=== PATIENT | female | born 1960 | race Two or more races ===

== ENCOUNTER 2025-01-26 15:40 | Emergency (ER) | payer MEDICAID, SELFPAY ==
[2025-01-26 15:53] VITALS: BP 149/95; PULSE 89; RESP 18; TEMP 37.1; O2SAT 95; BMI 27.0
--- NOTE | 2025-01-26 16:01 | XR_ITS ---
Examination: CT brain head without contrast. 2-D sagittal coronal reconstructions Date and time of exam:January 26, 2025 1612 hrs. Indications: Headaches dizziness left eye pressure today CTDI: vol (mGy):49.2 DLP: (mGycm):9 Technique: Multiple CT axial sections of the brain have been obtained, 5 mm slice thickness. Contrast has not been administered. 2-D sagittal, coronal reconstructions have been obtained Low dose protocols were performed. One or more of the following dose reduction techniques were used; automated exposure control, adjustment of the mA and/or KV according to patient size, use of iterative reconstruction technique. Findings: No significant ventricular enlargement. Intra-axial or extra-axial hemorrhage density is not seen. No mass effect or midline shift Basal cisterns are not remarkable. Fourth ventricle is midline. Cranial vault intact. Impression: Negative for acute hemorrhage, mass effect or midline shift Significant left ethmoid left sphenoid chronic sinusitis
--- NOTE | 2025-01-26 16:03 | PD.EDRME ---
Rapid Medical Screening Exam E Arrival date/time: 01/26/25 15:40 64-year-old female with no known medical history presents to the emergency room with a chief complaint of left-sided 10 out of 10 headache, left-sided blurry vision and the sensation of pressure in the left eye x 1 week I have greeted and performed a focused initial assessment of this patient. A comprehensive ED assessment and evaluation of the patient, analysis of all test results, and completion of the medical decision making process will be conducted by additional ED providers. Chief Complaint: General Adult/Misc Complain Vital signs: Vital Signs Temperature 98.7 F 01/26/25 15:53 Pulse Rate 89 01/26/25 15:53 Respiratory Rate 18 01/26/25 15:53 Blood Pressure 149/95 H 01/26/25 15:53 Pulse Oximetry (%) 95 01/26/25 15:53 Oxygen Delivery Method Room Air 01/26/25 15:53 Vital signs reviewed by provider: Yes
[2025-01-26 16:28] LABS: Basophils # (Auto) 0.1 Thou/mm3 (0.0-0.2); Basophils % (Auto) 1 % (0-2.5); Eosinophils # (Auto) 0.1 Thou/mm3 (0.0-0.5); Eosinophils % (Auto) 1 % (0-10); Hematocrit 37.5 % (36.0-46.0); Hemoglobin 12.3 g/dL (12.0-16.0); Immature Granulocytes Auto 0.05 Thou/mm3 (0.00-0.00); Lymphocytes # (Auto) 2.6 Thou/mm3 (1.0-4.8); Lymphocytes % (Auto) 22 % (10-50); Mean Corpuscular HGB Conc 32.8 g/dl (31.0-37.0); Mean Corpuscular Hemoglobin 29.9 pg (25.0-35.0); Mean Corpuscular Volume 91 fL (80-100); Monocytes # (Auto) 1.2 Thou/mm3 (0.0-0.8); Monocytes % (Auto) 10 % (0-12); Neutrophils # (Auto) 7.8 Thou/mm3 (1.8-7.7); Neutrophils % (Auto) 66 % (37-80); Nucleated Red Blood Cell # 0.00 Thou/mm3 (0.00-0.00); Nucleated Red Blood Cell % 0 /100 WBC (0); Platelet Count 337 Thou/mm3 (140-440); RDW Standard Deviation 48.1 fL (36.4-46.3); Red Blood Count 4.12 Miln/mm3 (4.00-5.20); White Blood Count 11.8 Thou/mm3 (3.6-11.0)
[2025-01-26 16:49] LABS: Alanine Aminotransferase 35 U/L (10-49); Albumin, Serum 4.5 gm/dL (3.4-4.8); Albumin/Globulin Ratio 1.6 (1.2-2.2); Alkaline Phosphatase 168 U/L (46-116); Anion Gap 11 (7-16); Aspartate Amino Transferase 26 U/L (0-34); BUN/Creatinine Ratio 8 Ratio (12-20); Bilirubin,Total 0.3 mg/dL (0.3-1.2); Blood Urea Nitrogen 11 mg/dL (9-23); Calcium 9.5 mg/dL (8.3-10.6); Calcium (Corrected) 9.5 mg/dL (8.5-10.1); Carbon Dioxide 25.4 mMol/L (20.0-31.0); Chloride 104 mMol/L (98-107); Creatinine (Component) 1.3 mg/dL (0.6-1.3); Estimated Creatinine Clearance 40.3 mL/min (>60); Globulin 2.8 gm/dL (2.3-3.5); Glucose 102 mg/dL (74-106); Osmolality,Calculated 278 (275-295); Potassium 4.0 mMol/L (3.4-5.1); Sodium 140 mMol/L (136-145); Total Protein 7.3 gm/dL (5.7-8.2); eGFR 46 See Note
[2025-01-26 17:39] VITALS: BP 180/80; PULSE 88; RESP 18; TEMP 37.2; O2SAT 97
--- NOTE | 2025-01-26 18:47 | PD.EDADULT ---
ED General RME/HPI General Chief complaint: General Adult/Misc Complain Stated complaint: Left eye, left head pain, left cheek swelling Time Seen by Provider: 01/26/25 18:48 Arrival date/time: 01/26/25 15:40 RME / HPI RME / HPI narrative: 01/26/25 15:40 64-year-old female with no known medical history presents to the emergency room with a chief complaint of left-sided 10 out of 10 headache, left-sided blurry vision and the sensation of pressure in the left eye x 1 week I have greeted and performed a focused initial assessment of this patient. A comprehensive ED assessment and evaluation of the patient, analysis of all test results, and completion of the medical decision making process will be conducted by additional ED providers. --------- Dr. Grossman?s Main ED Evaluation: 64yo female with a history of HTN presents to the ED with a persistent left-sided headache that radiates to her left eye and posterior scalp for the last one week. She has been taking Advil at home without any alleviation of symptoms. Patient denies any vision changes, nausea, vomiting, or any other associated symptoms. Denies any head trauma. Denies any history of similar symptoms. NKDA. Related Data Previous Rx's ?Medication ?Instructions ?Recorded naproxen 500 mg tablet (Naprosyn) 500 mg PO BID PRN pain #20 tabs 01/26/25 Allergies Allergy/AdvReac Type Severity Reaction Status Date / Time No Known Drug Allergies Allergy Verified 01/26/25 15:47 Review of Systems Review of Systems Systems Reviewed: All systems reviewed, normal except as documented Past Medical History Past Medical History CARDIAC: Positive Deep Vein Thrombosis and Hypertension; Negative Congestive Heart Failure RESPIRATORY: Negative Chronic Obstructive Pulmonary Disease (COPD) GENITOURINARY: Negative Renal Disease ENT: Positive Cataracts and Blind ENDOCRINE: Negative Diabetes Mellitus Type 1 or Diabetes Mellitus Type 2 Social History SMOKING STATUS: Never smoker ED Exam Narrative Physical exam: Generally patient is alert and in no obvious distress, head is normocephalic atraumatic, head shows tenderness to palpation over the attachment of the trapezius musculature to the base of the left side of the skull. Minimal pain over the left temporal region. No erythema. Patient has equal and palpable bilateral temporal pulses. Eyes pupils equal round reactive to light bilateral anterior chambers are clear. Pupils bilaterally are approximately 6 mm and reactive. Extraocular movements are intact. Funduscopic exam was unremarkable without evidence of vitreous hemorrhage. Visual acuity was 20/25 both eyes and 20/30 on the left and 20/30 on the right. Neck shows no bruits. Heart regular rate and rhythm. Lungs clear to auscultation equal bilaterally. Abdomen soft bowel sounds present nondistended nontender. Skin is warm pale and dry. Extremities show no edema. Neurologic exam patient is alert and oriented x 4 with a Karen Coma Scale of 15. No focal motor deficits. Course Quality Measures none Orders Category Date Time Status Tonometer to Bedside X1 Care 01/26/25 16:02 Completed Visual Acuity X1 Care 01/26/25 16:[address] head/brain wo con Stat Exams 01/26/25 16:01 Completed CBC Stat Lab 01/26/25 16:20 Completed CMP [Comprehensive Metabolic Panel] Stat Lab 01/26/25 16:20 Completed Ketorolac Inj [Toradol Inj] Med 01/26/25 18:56 Once 30 mg IM X1 ONE Vital Signs Vital signs: Vital Signs Temperature 98.7 F 01/26/25 15:53 Pulse Rate 89 01/26/25 15:53 Respiratory Rate 18 01/26/25 15:53 Blood Pressure 149/95 H 01/26/25 15:53 Pulse Oximetry (%) 95 01/26/25 15:53 Oxygen Delivery Method Room Air 01/26/25 15:53 Discharge Plan Plan Patient Disposition: HOME (Self Care) Prescriptions/Referrals Prescriptions/Med Rec: New naproxen [Naprosyn] 500 mg tablet 500 mg PO BID PRN (Reason: pain) Qty: 20 0RF Referrals: Rizwan Brown PA-C [Primary Care Provider] - In 1 week Problem List Clinical Impression: Cephalgia Patient/Caregiver Discharge Instructions Additional Instructions: Naprosyn as prescribed. CAT scan of the brain was normal. Blood work was unremarkable. If headache persists you will need to follow-up with your primary care physician for neurology follow-up. Print Language: Filipino Stand Alone Forms: Lynn Award Info., Patient Portal Info Letter MDM Narrative [facility] hospital course: Scribe Attestation: 01/26/25 - Esperanza Virk am scribing for and in the presence of Dr. Grossman. Patient has been here for 3 hours prior to my evaluation. Blood work was unremarkable. CAT scan of the brain was negative. Physical exam was rather unremarkable. I do not believe this patient to have glaucoma or temporal arteritis. She will be given Toradol 30 mg IM. She is to take Naprosyn as prescribed. She may follow-up with her doctor for further treatment and evaluation for this headache which has been present for longer than a week. On history and physical there is no indication of stroke. Blood pressure was relatively well-controlled here in the emergency room. Patient does have a history of hypertension. Clinical Information Provided by patient Medical Records Reviewed [facility] (Per chart review, patient has no previous ED visits or admissions to this facility.) Meds/Rx Considered, not Ordered None Labs/Rad/Tests considered, not Ordered None Chronic Illness/Social Conditions Add or document further as needed: Hx HTN Lab Interpretation Labs: interpreted by me Imaging Imaging interpretation: interpreted by [place] Radiology reports / interpretation(s): [place] [facility] Report Signed Patient: DESTINY LINCOLN [facility]. Record#: [id number] Birthdate: 1960 Age/Sex: 64 / F Location: [facility] Attending Dr: Ordering Physician: Sidney Black Date of Service: 01/26/25 Procedure(s): CT head/brain wo con Accession Number(s): [id number] cc: Sidney Black; Rizwan Brown PA-C; Ralph Giron MD~ Examination: CT brain head without contrast. 2-D sagittal coronal reconstructions Date and time of exam:January 26, 2025 1612 hrs. Indications: Headaches dizziness left eye pressure today CTDI: vol (mGy):49.2 DLP: (mGycm):9 Technique: Multiple CT axial sections of the brain have been obtained, 5 mm slice thickness. Contrast has not been administered. 2-D sagittal, coronal reconstructions have been obtained Low dose protocols were performed. One or more of the following dose reduction techniques were used; automated exposure control, adjustment of the mA and/or KV according to patient size, use of iterative reconstruction technique. Findings: No significant ventricular enlargement. Intra-axial or extra-axial hemorrhage density is not seen. No mass effect or midline shift Basal cisterns are not remarkable. Fourth ventricle is midline. Cranial vault intact. Impression: Negative for acute hemorrhage, mass effect or midline shift Significant left ethmoid left sphenoid chronic sinusitis Dictated By: Ralph Giron MD Signed By: <Electronically signed by Ralph Giron MD in [place]> 01/26/25 7974 Medication Administration(s) none Medication Administration History Ketorolac Tromethamine (Ketorolac Inj 60 Mg/2 Ml Vial) 30 mg IM X1 ONE Stop: 01/26/25 18:57 Diagnosis Differential diagnosis: See MDM. Most likely dx, and/or detailed dx discussion: see clinical impression below Dispositon Disposition: Discharge Home
[2025-01-26 19:17] VITALS: BP 165/96; PULSE 80; RESP 19; TEMP 36.9; O2SAT 97
[2025-01-26] MEDS: KETOROLAC INJ 60 MG/2 ML VIAL 30 MG IM (19:17)
== END 2025-01-26 19:25 | disposition home or self-care (01) ==
PROVIDERS: Nurse Practitioner Family; Emergency Provider Emergency Medicine; PCP Physician Assistant
DX: J32.8 Other chronic sinusitis (principal)
CPT/HCPCS: 36415; 70450; 80053; 85025; 96372; 99283; J1885